=== PATIENT | male | born 1945 | race Caucasian/White ===

== ENCOUNTER 2022-01-29 09:39 | Inpatient (IN) ==
[2022-01-29] MEDS ORDERED: *HR* OxyCODONE/APAP 10/325 TABLET PO PRN (14:37)
[2022-01-29] MEDS ORDERED: Dextrose 4 GM Chewable Tablets PO PRN ×2 (14:38)
[2022-01-29] MEDS ORDERED: D5% in Water 1,000 ML IVC PRN (14:38)
[2022-01-29] MEDS ORDERED: *HR* Dextrose 50 % in Water (Syg) 50 ML SYRINGE IVP PRN (14:38)
[2022-01-29] MEDS: GuaiFENesin Liq 200 MG/10 ML UDC PO SCH (16:23)
[2022-01-29] MEDS: Artificial Tears SOLN 15 ML BOTTLE BOTH EYES SCH ×2 (16:23→23:42)
[2022-01-29] MEDS: Insulin LISPRO 300 UNITS/3 ML VIAL SUBQ SCH (17:03)
[2022-01-29] MEDS: *HR* Metformin 500 MG TABLET PO SCH (17:03)
[2022-01-29] MEDS: Cholecalciferol (D-3) 1,000 UNIT (25MCG) TABLET PO SCH (21:29)
[2022-01-29] MEDS: Budesonide/Formoterol 160/4.5 1 PUFF INH IH SCH (22:01)
[2022-01-30] MEDS: GuaiFENesin Liq 200 MG/10 ML UDC PO SCH (03:40)
[2022-01-30] MEDS: *HR* Enoxaparin 40 MG/0.4 ML SYRINGE SQ SCH (06:21)
[2022-01-30 07:07] LABS: Basophils % 0.5 %; Eosinophils # 0.3 K/mcL (0.0-0.6); Eosinophils % 3.4 %; Hematocrit 38.7 % (37.5-50.1); Hemoglobin 12.5 g/dL (12.9-16.9); Immature Granulocytes % 0.3 % (0-4); Lymphocytes # 2.2 K/mcL (0.6-4.6); Lymphocytes % 27.7 %; Mean Corpuscular HGB Conc 32.3 g/dL (31.6-35.5); Mean Corpuscular Hemoglobin 29.6 pg (28.0-33.3); Mean Corpuscular Volume 91.7 fL (83.0-100.0); Mean Platelet Volume 11.2 fL (9.4-12.4); Monocytes # 0.6 K/mcL (0.0-1.3); Monocytes % 7.6 %; Neutrophils # 4.8 K/mcL (1.6-8.9); Platelet Count 239 K/mcL (140-400); Red Blood Count 4.22 M/mcL (4.19-5.50); Red Cell Distribution Width 13.2 % (11.5-14.5); Segmented Neutrophils % 60.5 %; White Blood Count 7.9 K/mcL (4.3-11.1)
[2022-01-30 07:25] LABS: BUN/Creatinine Ratio 24 (6-26); Blood Urea Nitrogen 26 mg/dL (8-23); Calcium 9.6 mg/dL (8.6-10.3); Carbon Dioxide 27 mEq/L (23-29); Chloride 106 mEq/L (98-107); Glucose 150 mg/dL (70-105); Osmolality,Calculated 296 (280-300); Potassium 4.1 mEq/L (3.5-5.1); Sodium 139 mEq/L (136-145); eGFR For African Americans > 60 (> 60); eGFR For Non-African Americans > 60 (> 60)
[2022-01-30] MEDS: Insulin LISPRO 300 UNITS/3 ML VIAL SUBQ SCH ×3 (08:27→16:38)
[2022-01-30] MEDS: Ascorbic Acid 500 MG TABLET PO SCH (08:28)
[2022-01-30] MEDS: *HR* Metformin 500 MG TABLET PO SCH ×2 (08:28→17:13)
[2022-01-30] MEDS: lisinopriL 10 MG TABLET PO SCH (08:29)
[2022-01-30] MEDS: Aspirin Enteric Coated 81 MG Tablet PO SCH (08:29)
[2022-01-30] MEDS: hydroCHLOROthiazide 25 MG TABLET PO SCH (08:29)
[2022-01-30] MEDS: amLODIPine 5 MG TABLET PO SCH (08:29)
[2022-01-30] MEDS: Cyanocobalamin (B-12) 1,000 MCG TABLET PO SCH (08:29)
[2022-01-30] MEDS: Cholecalciferol (D-3) 1,000 UNIT (25MCG) TABLET PO SCH ×2 (08:29→19:24)
[2022-01-30] MEDS: Venlafaxine XR (24 HR) 37.5 MG CAP.ER.24H PO SCH (08:30)
[2022-01-30] MEDS: Nicotine 14 MG PATCH.TD24 TD SCH (08:30)
[2022-01-30] MEDS: Artificial Tears SOLN 15 ML BOTTLE BOTH EYES SCH ×4 (08:45→19:23)
[2022-01-30] MEDS: Budesonide/Formoterol 160/4.5 1 PUFF INH IH SCH ×2 (09:49→22:04)
[2022-01-30] MEDS ORDERED: GuaiFENesin Liq 200 MG/10 ML UDC PO PRN (12:46)
[2022-01-31] MEDS: *HR* Enoxaparin 40 MG/0.4 ML SYRINGE SQ SCH (06:57)
[2022-01-31] MEDS: Nicotine 14 MG PATCH.TD24 TD SCH (08:37)
[2022-01-31] MEDS: Venlafaxine XR (24 HR) 37.5 MG CAP.ER.24H PO SCH (08:37)
[2022-01-31] MEDS: Cyanocobalamin (B-12) 1,000 MCG TABLET PO SCH (08:37)
[2022-01-31] MEDS: hydroCHLOROthiazide 25 MG TABLET PO SCH (08:38)
[2022-01-31] MEDS: Aspirin Enteric Coated 81 MG Tablet PO SCH (08:38)
[2022-01-31] MEDS: Ascorbic Acid 500 MG TABLET PO SCH (08:38)
[2022-01-31] MEDS: *HR* Metformin 500 MG TABLET PO SCH ×2 (08:38→17:05)
[2022-01-31] MEDS: lisinopriL 10 MG TABLET PO SCH (08:38)
[2022-01-31] MEDS: Cholecalciferol (D-3) 1,000 UNIT (25MCG) TABLET PO SCH ×2 (08:39→19:52)
[2022-01-31] MEDS: amLODIPine 5 MG TABLET PO SCH (08:39)
[2022-01-31] MEDS: Insulin LISPRO 300 UNITS/3 ML VIAL SUBQ SCH ×3 (08:39→17:06)
[2022-01-31] MEDS: Artificial Tears SOLN 15 ML BOTTLE BOTH EYES SCH ×3 (08:39→19:52)
[2022-01-31] MEDS: Budesonide/Formoterol 160/4.5 1 PUFF INH IH SCH ×2 (09:47→22:22)
[2022-02-01] MEDS: *HR* Enoxaparin 40 MG/0.4 ML SYRINGE SQ SCH (05:37)
[2022-02-01] MEDS: *HR* Metformin 500 MG TABLET PO SCH ×2 (07:38→16:21)
[2022-02-01] MEDS: Venlafaxine XR (24 HR) 37.5 MG CAP.ER.24H PO SCH (07:38)
[2022-02-01] MEDS: amLODIPine 5 MG TABLET PO SCH (07:39)
[2022-02-01] MEDS: hydroCHLOROthiazide 25 MG TABLET PO SCH (07:39)
[2022-02-01] MEDS: Ascorbic Acid 500 MG TABLET PO SCH (07:39)
[2022-02-01] MEDS: lisinopriL 10 MG TABLET PO SCH (07:39)
[2022-02-01] MEDS: Aspirin Enteric Coated 81 MG Tablet PO SCH (07:40)
[2022-02-01] MEDS: Cyanocobalamin (B-12) 1,000 MCG TABLET PO SCH (07:40)
[2022-02-01] MEDS: Nicotine 14 MG PATCH.TD24 TD SCH (07:40)
[2022-02-01] MEDS: Cholecalciferol (D-3) 1,000 UNIT (25MCG) TABLET PO SCH ×2 (07:40→19:45)
[2022-02-01] MEDS: Insulin LISPRO 300 UNITS/3 ML VIAL SUBQ SCH ×3 (07:41→16:22)
[2022-02-01] MEDS: Artificial Tears SOLN 15 ML BOTTLE BOTH EYES SCH ×3 (07:41→19:46)
[2022-02-01] MEDS: Budesonide/Formoterol 160/4.5 1 PUFF INH IH SCH ×2 (09:12→21:25)
[2022-02-01] MEDS ORDERED: *HR* OxyCODONE/APAP 10/325 TABLET PO SCH (12:00)
[2022-02-01] MEDS ORDERED: *HR* OxyCODONE/APAP 5/325 TABLET PO ONE (12:00)
[2022-02-01] MEDS: *HR* OxyCODONE/APAP 10/325 TABLET PO SCH ×2 (16:21→23:59)
[2022-02-02] MEDS: *HR* Enoxaparin 40 MG/0.4 ML SYRINGE SQ SCH (05:46)
[2022-02-02] MEDS: Insulin LISPRO 300 UNITS/3 ML VIAL SUBQ SCH ×4 (08:26→21:47)
[2022-02-02] MEDS: Cholecalciferol (D-3) 1,000 UNIT (25MCG) TABLET PO SCH ×2 (08:26→21:53)
[2022-02-02] MEDS: *HR* OxyCODONE/APAP 10/325 TABLET PO SCH ×2 (08:26→16:15)
[2022-02-02] MEDS: *HR* Metformin 500 MG TABLET PO SCH ×2 (08:26→16:15)
[2022-02-02] MEDS: Venlafaxine XR (24 HR) 37.5 MG CAP.ER.24H PO SCH (08:27)
[2022-02-02] MEDS: amLODIPine 5 MG TABLET PO SCH (08:27)
[2022-02-02] MEDS: Aspirin Enteric Coated 81 MG Tablet PO SCH (08:27)
[2022-02-02] MEDS: hydroCHLOROthiazide 25 MG TABLET PO SCH (08:27)
[2022-02-02] MEDS: Cyanocobalamin (B-12) 1,000 MCG TABLET PO SCH (08:27)
[2022-02-02] MEDS: lisinopriL 10 MG TABLET PO SCH (08:27)
[2022-02-02] MEDS: Nicotine 14 MG PATCH.TD24 TD SCH (08:28)
[2022-02-02] MEDS: Ascorbic Acid 500 MG TABLET PO SCH (08:28)
[2022-02-02] MEDS: Artificial Tears SOLN 15 ML BOTTLE BOTH EYES SCH ×3 (08:31→21:53)
[2022-02-02] MEDS: Budesonide/Formoterol 160/4.5 1 PUFF INH IH SCH ×2 (09:15→21:57)
[2022-02-02] MEDS ORDERED: Carbamide Peroxide 150 DROP/15 ML BOTTLE LEFT EAR ONE (21:00)
[2022-02-03] MEDS: *HR* OxyCODONE/APAP 10/325 TABLET PO SCH ×3 (01:08→17:03)
[2022-02-03] MEDS: *HR* Enoxaparin 40 MG/0.4 ML SYRINGE SQ SCH (06:38)
[2022-02-03] MEDS: Budesonide/Formoterol 160/4.5 1 PUFF INH IH SCH ×2 (09:34→21:06)
[2022-02-03] MEDS: Artificial Tears SOLN 15 ML BOTTLE BOTH EYES SCH ×3 (09:58→21:36)
[2022-02-03] MEDS: Insulin LISPRO 300 UNITS/3 ML VIAL SUBQ SCH ×4 (09:58→21:34)
[2022-02-03] MEDS: Venlafaxine XR (24 HR) 37.5 MG CAP.ER.24H PO SCH (09:59)
[2022-02-03] MEDS: *HR* Metformin 500 MG TABLET PO SCH ×2 (09:59→17:04)
[2022-02-03] MEDS: Cholecalciferol (D-3) 1,000 UNIT (25MCG) TABLET PO SCH ×2 (10:00→21:36)
[2022-02-03] MEDS: amLODIPine 5 MG TABLET PO SCH (10:00)
[2022-02-03] MEDS: Ascorbic Acid 500 MG TABLET PO SCH (10:00)
[2022-02-03] MEDS: Cyanocobalamin (B-12) 1,000 MCG TABLET PO SCH (10:00)
[2022-02-03] MEDS: hydroCHLOROthiazide 25 MG TABLET PO SCH (10:00)
[2022-02-03] MEDS: lisinopriL 10 MG TABLET PO SCH (10:01)
[2022-02-03] MEDS: Nicotine 14 MG PATCH.TD24 TD SCH (10:01)
[2022-02-03] MEDS: Aspirin Enteric Coated 81 MG Tablet PO SCH (10:01)
[2022-02-04] MEDS: *HR* OxyCODONE/APAP 10/325 TABLET PO SCH ×2 (00:26→09:11)
[2022-02-04 07:35] VITALS: BP 123/71; PULSE 69; TEMP 98
[2022-02-04] MEDS: *HR* Enoxaparin 40 MG/0.4 ML SYRINGE SQ SCH (07:36)
[2022-02-04] MEDS: Insulin LISPRO 300 UNITS/3 ML VIAL SUBQ SCH ×2 (08:05→13:10)
[2022-02-04] MEDS: Cholecalciferol (D-3) 1,000 UNIT (25MCG) TABLET PO SCH (09:11)
[2022-02-04] MEDS: Cyanocobalamin (B-12) 1,000 MCG TABLET PO SCH (09:12)
[2022-02-04] MEDS: Ascorbic Acid 500 MG TABLET PO SCH (09:12)
[2022-02-04] MEDS: hydroCHLOROthiazide 25 MG TABLET PO SCH (09:12)
[2022-02-04] MEDS: Aspirin Enteric Coated 81 MG Tablet PO SCH (09:12)
[2022-02-04] MEDS: *HR* Metformin 500 MG TABLET PO SCH (09:12)
[2022-02-04] MEDS: Venlafaxine XR (24 HR) 37.5 MG CAP.ER.24H PO SCH (09:12)
[2022-02-04] MEDS: amLODIPine 5 MG TABLET PO SCH (09:13)
[2022-02-04] MEDS: lisinopriL 10 MG TABLET PO SCH (09:13)
[2022-02-04] MEDS: Nicotine 14 MG PATCH.TD24 TD SCH (09:13)
[2022-02-04] MEDS: Artificial Tears SOLN 15 ML BOTTLE BOTH EYES SCH (09:14)
[2022-02-04] MEDS: Budesonide/Formoterol 160/4.5 1 PUFF INH IH SCH (09:27)
[2022-02-04 10:03] VITALS: RESP 18; O2SAT 92
== END 2022-02-04 14:00 | disposition home or self-care (01) | DRG 66 ==
LOC: INPPIK 12:57
PROVIDERS: ADMIT Internal Medicine; ATTEND Internal Medicine